=== PATIENT | male | born 1955 | race American Indian/Alaskan Native ===

== ENCOUNTER 2018-03-15 06:02 | Day surgery (SDC) | payer OTHER ==
[2018-03-15] MEDS ORDERED: NACL 0.9% 1000 ML 1,000 ML ONE (07:14)
[2018-03-15] MEDS ORDERED: WATER FOR IRRIG STERILE ONE (07:18)
[2018-03-15] MEDS ORDERED: WATER FOR IRRIG STERILE IR ONE (07:18)
--- NOTE | 2018-03-15 07:31 | Anesthesia Day of Surgery ---
Anesthesia Day of Surgery - Day of Surgery Patient Examined: Yes Patient H&P Reviewed: Yes Patient is NPO: Yes
--- NOTE | 2018-03-15 07:31 | Anesthesia Consultation ---
Anesthesia Consult and Med Hx Date of service: 03/15/18 - Airway Anesthetic Teeth Evaluation: Bridges ROM Head & Neck: Adequate Mental/Hyoid Distance: Adequate Mallampati Class: Class I Intubation Access Assessment: Good - Pulmonary Exam CTA: Yes - Cardiac Exam Cardiac Exam: RRR - Pre-Operative Health Status ASA Pre-Surgery Classification: ASA3 Proposed Anesthetic Plan: General - Pulmonary Hx Smoking: Yes (Quit in 1976) - Cardiovascular System Hx Hypertension: Yes Hx Heart Murmur: Yes - Endocrine Hx Non-Insulin Dependent Diabetes: Yes - Other Systems Hx Obesity: Yes (BMI > 40) - Additional Comments Anesthesia Medical History Comments: NAC.
[2018-03-15] MEDS ORDERED: DIPRIVAN 10 MG/ML IV ONE ×2 (07:42)
[2018-03-15] MEDS ORDERED: NACL 0.9% 1000 ML 1,000 ML IV SCH (08:00)
--- NOTE | 2018-03-15 08:10 | Short Stay Summary ---
Short Stay Documentation - Allergies and Medications Current Medications: Allergies ACETAMINOPHEN/HYDRODODONE Allergy (Uncoded 03/14/18 17:31) Unknown Home Medications Medication Instructions Recorded Confirmed Last Taken Type Aspir-Low 1 tab PO DAILY 03/14/18 03/14/18 Unknown History AtorvaSTATin 1 tab PO DAILY 03/14/18 03/14/18 03/14/18 History Carvedilol 1 tab PO BID 03/14/18 03/14/18 03/14/18 History Fish Oil 1,000 mg Softgel 1 cap PO DAILY 03/14/18 03/14/18 Unknown History Lisinopril 1 tab PO DAILY 03/14/18 03/15/18 03/13/18 History Mupirocin 1 dose NOTAPPLIC TID 03/14/18 03/14/18 Unknown History amLODIPine 1 tab PO DAILY 03/14/18 03/14/18 Unknown History metFORMIN 1 tab PO BID 03/14/18 03/15/18 03/12/18 History traMADol 1 tab PO Q6H PRN MDD 4 03/14/18 03/14/18 Unknown History Active Medications Sodium Chloride (Nacl 0.9% 1000 Ml) 1,000 mls @ 50 mls/hr IV DIRECT CHANDU - Brief post op/procedure progress note Date of procedure: 03/15/18 Pre-op diagnosis: 1. colon cancer screening 2. History of colon cancer Post-op diagnosis: same (1. Diverticulosis coli 2, internal hemorrhoids 3. Normal anastomosis) Procedure: Colonoscopy Anesthesia: MAC Findings: As above Surgeon: MILIND ISBELL Estimated blood loss: none Pathology: none Condition: stable - Disposition Condition at discharge: Stable Disposition: DC-01 TO HOME OR SELFCARE Short Stay Discharge Plan Activity: no restrictions Weight Bearing Status: Full Weight Bearing Diet: regular, low salt Follow up with: BRYANT VASQUES MD [Primary Care Provider] - 7 Days
[2018-03-15 08:45] VITALS: BP 156/81
== END 2018-03-15 06:03 | disposition home or self-care (01) ==
LOC: GIO 06:02
PROVIDERS: ATTEND Internal Medicine Gastroenterology
DX: Z12.11 Encounter for screening for malignant neoplasm of colon (principal); K57.30 Diverticulosis of large intestine without perforation or abscess without bleeding; K64.0 First degree hemorrhoids; E11.9 Type 2 diabetes mellitus without complications; I10 Essential (primary) hypertension; E66.9 Obesity, unspecified; Z68.41 Body mass index [BMI] 40.0-44.9, adult; Z79.82 Long term (current) use of aspirin; Z79.899 Other long term (current) drug therapy; Z79.84 Long term (current) use of oral hypoglycemic drugs; Z88.6 Allergy status to analgesic agent; Z85.038 Personal history of other malignant neoplasm of large intestine; Z87.891 Personal history of nicotine dependence; Z83.3 Family history of diabetes mellitus; Z80.3 Family history of malignant neoplasm of breast
CPT/HCPCS: 45378; 82962; J2704; J7030